=== PATIENT | female | born 1960 | race Caucasian/White ===

== ENCOUNTER → 2023-04-03 13:51 | Outpatient (REF) | payer OTHER, SELFPAY | LOC: HWWDC 13:51 | PROVIDERS: ATTENDING PHYSICIAN Obstetrics & Gynecology Gynecology; FAMILY PHYSICIAN Family Medicine | DX: Z12.31 Encounter for screening mammogram for malignant neoplasm of breast (principal); Z78.0 Asymptomatic menopausal state | CPT/HCPCS: 77063; 77067; 77080 ==

== ENCOUNTER → 2023-10-03 12:47 | Outpatient (REF) | payer MEDICARE, OTHER, SELFPAY | LOC: HWRAD 12:47 | PROVIDERS: ATTENDING PHYSICIAN Family Medicine | DX: Z87.891 Personal history of nicotine dependence (principal) | CPT/HCPCS: 71271 ==

== ENCOUNTER → 2024-05-21 10:27 | Outpatient (REF) | payer MEDICARE, OTHER, SELFPAY | LOC: HWWDC 10:27 | PROVIDERS: ATTENDING PHYSICIAN Family Medicine; REFERRING PHYSICIAN Obstetrics & Gynecology Gynecology | DX: D18.03 Hemangioma of intra-abdominal structures (principal); Z12.31 Encounter for screening mammogram for malignant neoplasm of breast | CPT/HCPCS: 76700; 77063; 77067 ==

== ENCOUNTER → 2024-09-03 06:22 | Outpatient (REF) | payer MEDICARE, OTHER, SELFPAY ==
[2024-09-03 09:43] LABS: Hematocrit 43.3 % (37.0-47.0); Hemoglobin 14.8 g/dL (12.0-16.0); Mean Corp Hgb Conc. 34.2 g/dL (33.0-37.0); Mean Corpuscular Volume 95.6 fL (81.0-99.0); Nucleated Red Blood Cells % 0 %; Platelet Count 254 10^3/uL (130-400); Red Cell Dist. Width 12.3 % (11.5-14.5)
[2024-09-03 09:50] LABS: Urine Character Clear (Clear)
[2024-09-03 10:00] LABS: Urine Squamous Cell >30 /LPF (Few)
[2024-09-03 10:01] LABS: Urine Red Blood Cell 0-2 /HPF (0-2)
[2024-09-03 10:04] LABS: ALT (SGPT) < 10 U/L (0-35); AST (SGOT) 24 U/L (14-36); Albumin 4.5 g/dl (3.5-5.0); Alkaline Phosphatase 67 U/L (38-126); Blood Urea Nitrogen 18 mg/dl (7-17); Calcium 9.3 mg/dl (8.4-10.2); Carbon Dioxide 22 mmol/L (22-30); Chloride 106 mmol/L (98-107); Glucose 107 mg/dl (70-99); HDL Cholesterol 65 mg/dl; LDL Cholesterol, Calculated 146 mg/dl; Potassium 4.6 mmol/L (3.5-5.1); Sodium 137 mmol/L (135-145); Total Protein 7.5 g/dl (6.3-8.2); Very Low Density Lipoprotein 43 mg/dl (0-30); eGFR > 60.00
[2024-09-03 10:13] LABS: Glycohemoglobin (HgbA1c) 5.7 % (4.0-5.6)
[2024-09-03 10:45] LABS: TSH 1.64 uIU/ml (0.47-4.68)
[2024-09-06 10:17] LABS: Lipoprotein a (Lp a) <6 mg/dL (<=29)
== END ==
LOC: HWLAB 06:22
PROVIDERS: ATTENDING PHYSICIAN Family Medicine
DX: R79.89 Other specified abnormal findings of blood chemistry (principal); E78.2 Mixed hyperlipidemia; R73.09 Other abnormal glucose; R03.0 Elevated blood-pressure reading, without diagnosis of hypertension
CPT/HCPCS: 36415; 80053; 80061; 81003; 81015; 82172; 83036; 83695; 84443; 85025

== ENCOUNTER → 2024-10-03 12:52 | Outpatient (REF) | payer MEDICARE, OTHER, SELFPAY | LOC: HWRAD 12:52 | PROVIDERS: ATTENDING PHYSICIAN Family Medicine | DX: Z87.891 Personal history of nicotine dependence (principal) | CPT/HCPCS: 71271 ==